=== PATIENT | male | born 1940 | race Caucasian/White ===

== ENCOUNTER → 2023-01-08 10:36 | Outpatient (CLI) | payer MEDICARE, BC, SELFPAY ==
--- NOTE | ~2023-01-08 | US_ITS ---
EXAMINATION: US scrotum doppler DATE: 01/08/2023 11:30 INDICATION: Testicular pain TECHNIQUE: Testicular sonogram utilizing grayscale and Doppler COMPARISON: None. FINDINGS: The right testis measures 3.9 x 2.3 x 3.0 cm. The left testis measures 3.6 x 3.0 x 2.9 cm. Symmetric normal grayscale appearance to both testes. There is normal vascular flow to both testes. Few small a nechoic epididymal cysts at the head of the right epididymis, the largest measuring 5 mm. The right e pididymis is otherwise normal with normal vascular flow. There is an additional 9 mm anechoic left ep ididymal cyst. There is focal enlargement of the tail of the left epididymis is somewhat heterogeneou s echogenicity but without a clearly defined mass. There is no varicocele. Small bilateral hydroceles . IMPRESSION: 1. Normal bilateral testes. 2. Enlargement and heterogeneous increased echogenicity of the left epididymal tail without a clearly defined mass which suggests sequela of chronic epididymitis. Differential would include benign lesio ns such as adenomatoid tumor, sperm granuloma or other granulomatous disease or less likely malignanc y either primary or metastatic. Reviewed, dictated and finalized at location L. IMPRESSION: 1. Normal bilateral testes. 2. Enlargement and heterogeneous increased echogenicity of the left epididymal tail without a clearly defined mass which suggests sequela of chronic epididymi tis. Differential would include benign lesions such as adenomatoid tumor, sperm granuloma or other granulomatous disease or less likely malignancy either prim mallory or metastatic.
== END ==
PROVIDERS: PCP Family Medicine; Visit Provider Family Medicine
DX: N50.819 Testicular pain, unspecified (principal)
CPT/HCPCS: 76870; 93976

== ENCOUNTER → 2023-03-20 08:51 | Outpatient (CLI) | payer MEDICARE, BC, SELFPAY ==
--- NOTE | ~2023-03-20 | XR_ITS ---
EXAM: [id number] DATE: 03/20/2023 09:57 HISTORY: Cervicalgia . COMPARISON: 07/22/2019; MR cervical spine 09/05/2019. FINDINGS: Median sternotomy wires. Atherosclerotic carotid calcifications. Craniocervical association and atlantoaxial joint are aligned. Mild degenerative change at the atlantodental interval. Straight ening of the cervical spine, exaggerated thoracic kyphosis. Disc space narrowing and marginal osteoph ytosis at multiple levels, mild at C3-4, moderate at C4-5 through C6-7. Multilevel facet hypertrophy. IMPRESSION: Cervical spine stranding as can occur with positioning or muscle spasm. Multilevel cervic al spondylosis. Multilevel moderate facet arthropathy. Reviewed, dictated and finalized at location K. IMPRESSION: Cervical spine stranding as can occur with positioning or muscle sp asm. Multilevel cervical spondylosis. Multilevel moderate facet arthropathy.
== END ==
PROVIDERS: PCP Family Medicine; Visit Provider Physician Assistant
DX: M54.2 Cervicalgia (principal)
CPT/HCPCS: 72040